=== PATIENT | female | born 1955 | race African-American/Black ===

== ENCOUNTER → 2017-02-10 | Outpatient (CLI) | payer MEDICAID ==
[2017-02-10 13:07] LABS: AMPHETAMINE URINE NEGATIVE; BARBITURATES URINE NEGATIVE; BENZODIAZEPINES URINE NEGATIVE; BUPRENORPHINE URINE NEGATIVE; METHADONE URINE NEGATIVE; OPIATES URINE POSITIVE; OXYCODONE URINE NEGATIVE; PHENCYCLIDINE URINE NEGATIVE; PROPOXYPHENE URINE NEGATIVE; THC CANNABINOIDS URINE NEGATIVE; TRICYCLIC ANTIDEPRESS URINE NEGATIVE
== END ==
LOC: COL.LAB 11:55
PROVIDERS: Family Medicine
DX: M54.5 Low back pain (principal); G89.29 Other chronic pain

== ENCOUNTER → 2017-06-21 | Outpatient (CLI) | payer MEDICAID ==
[~2017-06-21] VITALS: Ht 156.2 cm; Wt 98.0 kg
[~2017-06-21] MED LIST: 00186-0370-20 IH; FLEXERIL 1010 MG/TAB PO; GLUCOPHAGE500 MG/TAB PO; LASIX 20MG TABL20 MG PO; LIPITOR 10MG10 MG PO; NORCO 325 MG-101 TAB PO; ZESTRIL 10MG10 MG PO
[2017-06-21 09:19] VITALS: BP 126/86; PULSE 60
== END ==
LOC: LIGHT 08:35
DX: J45.909 Unspecified asthma, uncomplicated (principal); M54.5 Low back pain; F33.9 Major depressive disorder, recurrent, unspecified; E11.9 Type 2 diabetes mellitus without complications; Z68.41 Body mass index [BMI] 40.0-44.9, adult; Z71.3 Dietary counseling and surveillance
CPT/HCPCS: G0463

== ENCOUNTER → 2017-07-10 | Outpatient (CLI) | payer MEDICAID | LOC: LIGHT 13:50 | DX: Z01.89 Encounter for other specified special examinations (principal) ==

== ENCOUNTER → 2017-07-13 | Outpatient (CLI) | payer MEDICAID | LOC: LIGHT 13:00 | DX: Z01.818 Encounter for other preprocedural examination (principal) ==

== ENCOUNTER → 2017-07-25 | Outpatient (CLI) | payer MEDICAID ==
[~2017-07-25] VITALS: Ht 156.2 cm; Wt 99.6 kg
[2017-07-25 15:41] VITALS: BP 156/84; PULSE 64
== END ==
LOC: LIGHT 14:40
DX: J45.909 Unspecified asthma, uncomplicated (principal); M54.5 Low back pain; F33.9 Major depressive disorder, recurrent, unspecified; E11.9 Type 2 diabetes mellitus without complications; Z68.41 Body mass index [BMI] 40.0-44.9, adult; Z71.3 Dietary counseling and surveillance
CPT/HCPCS: G0463

== ENCOUNTER → 2017-08-21 | Outpatient (CLI) | payer MEDICAID ==
[~2017-08-21] MED LIST changes: -ZESTRIL 10MG10 MG PO; +ZESTRIL 20MG TA20 MG PO
[2017-08-21 17:07] LABS: TRICYCLIC ANTIDEPRESS URINE NEGATIVE
== END ==
LOC: COL.LAB 09:13
PROVIDERS: Family Medicine
DX: Z51.81 Encounter for therapeutic drug level monitoring (principal)

== ENCOUNTER → 2017-08-22 | Outpatient (CLI) | payer MEDICAID ==
[~2017-08-22] VITALS: Ht 156.2 cm; Wt 99.3 kg
[2017-08-22 14:08] VITALS: BP 132/70; PULSE 64
== END ==
LOC: LIGHT 13:42
DX: J45.909 Unspecified asthma, uncomplicated (principal); M54.5 Low back pain; F33.9 Major depressive disorder, recurrent, unspecified; E11.9 Type 2 diabetes mellitus without complications; Z68.41 Body mass index [BMI] 40.0-44.9, adult; Z71.3 Dietary counseling and surveillance
CPT/HCPCS: G0463

== ENCOUNTER → 2017-09-11 | Outpatient (CLI) | payer MEDICAID | LOC: COL.LAB 10:41 | DX: Z11.3 Encounter for screening for infections with a predominantly sexual mode of transmission (principal) ==

== ENCOUNTER → 2017-11-17 | Outpatient (CLI) | payer MEDICAID ==
[~2017-11-17] MED LIST changes: +[UNRECOGNIZED DRUG - OTHER] PO
[2017-11-17 16:05] LABS: MUCOUS Present /lpf; PH 5 (5-8); URINE APPEARANCE Hazy; URINE BACTERIA None Seen /hpf; URINE BILIRUBIN Negative (NEGATIVE); URINE BLOOD 1+ (NEGATIVE); URINE COLOR Yellow; URINE GLUCOSE Negative (NEGATIVE); URINE KETONE Negative (NEGATIVE); URINE LEUKOCYTE ESTERASE 3+ (NEGATIVE); URINE NITRATE Negative (NEGATIVE); URINE PROTEIN(semi-quant) Negative (NEGATIVE); URINE UROBILINOGEN Negative (NEGATIVE)
[2017-11-17 16:07] LABS: COLLECTION METHOD CLEAN CATCH
== END ==
LOC: COL.LAB 12:35
PROVIDERS: Family Medicine
DX: R30.0 Dysuria (principal)

== ENCOUNTER → 2017-11-21 | Outpatient (CLI) | payer MEDICAID ==
[~2017-11-21] VITALS: Ht 156.2 cm; Wt 99.3 kg
[2017-11-21 12:51] VITALS: BP 142/90; PULSE 68
== END ==
LOC: LIGHT 09-26 10:37
DX: J45.909 Unspecified asthma, uncomplicated (principal); M54.5 Low back pain; F32.9 Major depressive disorder, single episode, unspecified; E11.9 Type 2 diabetes mellitus without complications; E66.01 Morbid (severe) obesity due to excess calories; Z68.41 Body mass index [BMI] 40.0-44.9, adult; Z71.3 Dietary counseling and surveillance
CPT/HCPCS: G0463

== ENCOUNTER → 2018-01-23 | Outpatient (CLI) | payer MEDICAID ==
[~2018-01-23] VITALS: Ht 156.2 cm; Wt 100.2 kg
[2018-01-23 12:56] VITALS: BP 116/80; PULSE 76
== END ==
LOC: LIGHT 12-26 14:54
DX: J45.909 Unspecified asthma, uncomplicated (principal); M54.5 Low back pain; F32.9 Major depressive disorder, single episode, unspecified; E11.9 Type 2 diabetes mellitus without complications; E66.01 Morbid (severe) obesity due to excess calories; Z68.41 Body mass index [BMI] 40.0-44.9, adult; Z71.3 Dietary counseling and surveillance
CPT/HCPCS: G0463

== ENCOUNTER → 2018-03-06 | Outpatient (CLI) | payer MEDICAID ==
[~2018-03-06] VITALS: Ht 156.2 cm; Wt 100.7 kg
[2018-03-06 13:06] VITALS: BP 120/82; PULSE 68
== END ==
LOC: LIGHT 08:29
DX: J45.909 Unspecified asthma, uncomplicated (principal); M54.5 Low back pain; F32.9 Major depressive disorder, single episode, unspecified; E11.9 Type 2 diabetes mellitus without complications; Z68.41 Body mass index [BMI] 40.0-44.9, adult; Z71.3 Dietary counseling and surveillance
CPT/HCPCS: G0463

== ENCOUNTER 2019-04-24 09:15 | Outpatient (RCR) | payer MEDICAID | END 2019-06-25 | disposition home or self-care (01) | LOC: WSC | DX: M25.551 Pain in right hip (principal) ==